=== PATIENT | female | born 1995 | race Caucasian/White ===

== ENCOUNTER 2022-11-03 12:23 | Emergency (ER) | payer OTHER ==
[2022-11-03 12:50] VITALS: BP 105/66; PULSE 119; RESP 18; TEMP 103.1; BMI 32.3
[2022-11-03] MEDS ORDERED: ACETAMINOPHEN 500 MG TABLET (FP) PO ONE (14:49)
[2022-11-03] MEDS ORDERED: IBUPROFEN 600 MG TABLET (FP) PO ONE (14:49)
[2022-11-03] MEDS ORDERED: ACETAMINOPHEN 500 MG TABLET (FP) ONE (15:07)
== END 2022-11-03 15:28 | disposition home or self-care (01) ==
LOC: JER 12:23
DX: J09.X2 Influenza due to identified novel influenza A virus with other respiratory manifestations (principal)
CPT/HCPCS: 0241U-QW; 99283-25